=== PATIENT | male | born 1935 | race Caucasian/White ===

== ENCOUNTER 2021-09-18 04:43 | Emergency (ER) | payer SELFPAY ==
[~2021-09-18] VITALS: Ht 182.9 cm; Wt 102.1 kg
--- NOTE | 2021-09-18 05:10 | NUR ---
BIB FAMILY FROM HOME C/O GLF 2 HRS AGO. LOST BALANCE WALKING UPSTAIRS. L ELBOW ABRASION. HEMATOMA TO L POSTERIOR SCALP. -KO. - TDAP UTD. DENIES DIZZINESS, N/V/D. UPON TRIAGE PT AMBULATORY WNL. NO BLE OR BUE ABNORMAL SHORTENING, EXTENSION, OR EXTERNAL ROTATION NOTED. PT CONNECTED TO POX AND MONITOR. VSS. SAFETY MEASURES IN PLACE
--- NOTE | 2021-09-18 05:21 | NUR ---
WOUND CARE DONE TO LEFT ELBOW
[2021-09-18] MEDS ORDERED: TDAP [DIPH/PERTUSSIS/TET] 0.5 ML VIAL IM ONE ×2 (05:22→05:30)
--- NOTE | 2021-09-18 05:25 | NUR ---
PT TAKEN TO RADIOLOGY VIA [facility]
--- NOTE | 2021-09-18 05:47 | NUR ---
CALLED RADIOLOGY F/U WITH XRAY TO BE TAKEN
[2021-09-18] MEDS ORDERED: HYDROCODONE/APAP 5/325MG TABLET PO ONE (06:30)
[2021-09-18] MEDS ORDERED: AMOX/CLAVULANATE 875 MG TABLET PO ONE (06:30)
--- NOTE | 2021-09-18 07:25 | NUR ---
DRESSING AND SPLINT APPLIED TO L ARM. Patient discharged to home in stable condition. Written and verbal after care instructions given. Patient verbalizes understanding of instruction. PT ambulatory with a steady gait
[2021-09-18 07:28] VITALS: BP 117/77
== END 2021-09-18 07:28 | disposition home or self-care (01) ==
LOC: ER 04:53
DX: S02.2XXA Fracture of nasal bones, initial encounter for closed fracture (principal); S53.492A Other sprain of left elbow, initial encounter; S00.03XA Contusion of scalp, initial encounter; S60.812A Abrasion of left wrist, initial encounter; I10 Essential (primary) hypertension; Z98.890 Other specified postprocedural states; W18.39XA Other fall on same level, initial encounter; Y93.89 Activity, other specified; Y92.89 Other specified places as the place of occurrence of the external cause; Y99.8 Other external cause status
CPT/HCPCS: 29105; 70450; 70486; 72125; 73080; 73110; 99284; A6403 ×2; 90715